=== PATIENT | female | born 1985 | race Caucasian/White ===

== ENCOUNTER 2020-08-18 14:12 | Emergency (ER) | payer OTHER ==
[2020-08-18 15:59] LABS: BASOPHIL 0.3 % (0-2); EOSINOPHIL 1.9 % (0-5); HCT 44.3 % (37.0-47.0); MCH 32.5 pg (25.0-31.0); MCHC 33.9 g/dL (32.0-36.0); MCV 96.1 fL (78.0-100.0); MONOCYTE 7.8 % (0-12); MPV 10.3 fL (6.0-9.5); NEUTROPHIL 53.8 % (41-80); NRBC 0; PLT 210 K/uL (150-400); RBC 4.61 M/uL (4.20-5.40); RDW 12.8 % (11.5-14.0); WBC 10.1 K/uL (4.0-10.5)
[2020-08-18 16:15] LABS: BILIRUBIN NEGATIVE (NEGATIVE); BLOOD NEGATIVE Ery/uL (NEGATIVE); CLARITY CLEAR (CLEAR); COLOR YELLOW (YELLOW); GLUCOSE (U) NORMAL (NORMAL); LEUKOCYTES TRACE Leu/uL (NEGATIVE); NITRITE POSITIVE (NEGATIVE); PROTEIN NEGATIVE (NEGATIVE); SPECIFIC GRAVITY 1.015 (1.001-1.030); UROBILINOGEN 0.2 mg/dL (0.2-1.0); pH 8.5 (5.0-9.0)
[2020-08-18 16:22] LABS: AMORPHOUS PHOSPHATE CRYSTALS MODERATE; BACTERIA 1+; URINARY RBC RARE
[2020-08-18] MEDS ORDERED: NORCO 5-325 TA1 EACH PO (17:07)
[2020-08-18] MEDS ORDERED: MACROBID100 MG PO (17:07)
== END 2020-08-18 17:14 | disposition home or self-care (01) ==
LOC: FER 14:12
PROVIDERS: Emergency Medicine
DX: N39.0 Urinary tract infection, site not specified (principal); N83.201 Unspecified ovarian cyst, right side; T40.2X5A Adverse effect of other opioids, initial encounter; N20.0 Calculus of kidney; F17.290 Nicotine dependence, other tobacco product, uncomplicated; Z87.442 Personal history of urinary calculi; Z98.51 Tubal ligation status
CPT/HCPCS: 36415; 81001; 85025; 87076; 87088; 87186; 96372; J1170; J1200; J1885; J2405; J2930; J7030

== ENCOUNTER 2020-08-19 00:02 | Emergency (ER) | payer OTHER ==
[~2020-08-19 00:02] MED LIST: MACROBID100 MG PO; NORCO 5-325 TA1 EACH PO
== END 2020-08-19 01:40 | disposition left against medical advice (07) ==
LOC: FER 00:02
DX: N83.209 Unspecified ovarian cyst, unspecified side (principal); F17.290 Nicotine dependence, other tobacco product, uncomplicated; Z87.442 Personal history of urinary calculi
CPT/HCPCS: 99283